=== PATIENT | female | born 1990 | race Caucasian/White ===

== ENCOUNTER 2019-08-26 19:01 | Emergency (ER) | payer OTHER ==
[2019-08-26 20:09] VITALS: BP 109/70
--- NOTE | 2019-08-26 20:17 | UC ---
Complaint Female HPI - HPI Summary HPI Summary: 29 yo female presents with urinary frequency and bladder pressure. She tells me that over the last week she has noticed increased thirst, urination, and bladder pressure. She does feel nauseous intermittently. She thought she was getting a UTI and took AZO, but had no change in her symptoms. She denies fever , chills, SOB, chest pain, abdominal pain, vomiting, diarrhea, flank pain, vaginal bleeding or discharge. Denies PMHx, but does have a fam hx of diabetes. - History Of Current Complaint Chief Complaint: UCBackPain Stated Complaint: KIDNEY/BACK PAIN Time Seen by Provider: 08/26/19 20:17 Hx Obtained From: Patient Hx Last Menstrual Period: 04/27/15 Onset/Duration: Sudden Onset Severity Initially: Moderate Severity Currently: Moderate Pain Intensity: 8 Pain Scale Used: 0-10 Numeric - Allergies/Home Medications Allergies/Adverse Reactions: Allergies Allergy/AdvReac Type Severity Reaction Status Date / Time No Known Allergies Allergy Verified 08/26/19 20:09 PMH/Surg Hx/FS Hx/Imm Hx - Additional Past Medical History Additional PMH: None - Surgical History Surgical History: None - Family History Known Family History: Positive: Non-Contributory - Social History Occupation: Employed Full-time Lives: With Family Alcohol Use: Weekly Substance Use Type: Marijuana Substance Use Comment - Amount & Last Used: RARELY Smoking Status (MU): Former Smoker Type: Cigarettes Amount Used/How Often: 6 CIGS DAILY Review of Systems All Other Systems Reviewed And Are Negative: No Constitutional: Positive: Negative Skin: Positive: Negative Respiratory: Positive: Negative Cardiovascular: Positive: Negative Gastrointestinal: Positive: Negative Genitourinary: Positive: Frequency Neurological: Positive: Negative Psychological: Positive: Negative Physical Exam - Summary Physical Exam Summary: GENERAL: NAD. WDWN. No pain distress. SKIN: No rashes, sores, lesions, or open wounds. NECK: Supple. Nontender. No lymphadenopathy. CHEST: CTAB. No r/r/w. No accessory muscle use. Breathing comfortably and in no distress. CV: RRR. Pulses intact. Cap refill <2seconds ABDOMEN: Soft. NTTP. No distention or guarding. No CVA tenderness. Bowel sounds present NEURO: Alert. PSYCH: Age appropriate behavior. Triage Information Reviewed: Yes Vital Signs: Initial Vital Signs Temp 98.3 F 08/26/19 20:04 Pulse 83 08/26/19 20:04 Resp 16 08/26/19 20:04 BP 109/70 08/26/19 20:04 Pulse Ox 99 08/26/19 20:04 Laboratory Tests 08/26/19 08/26/19 08/26/19 20:17 20:34 20:36 POC Glucose (mg/dL) 94 POC Urine Color Yellow POC Urine Clarity Clear POC Urine pH 5.5 POC Ur Specif [place] 1.015 POC Urine Protein Negative POC Ur Glucose (UA) Negative POC Urine Ketones Negative POC Urine Blood Negative POC Urine Nitrite Negative POC Urine Bilirubin Negative POC Urine Urobilinogen 0.2 POC U Leukocyte Esteras Negative POC Ur Test Negative Vital Signs Reviewed: Yes Complaint Female Dx - Course Course Of Treatment: UA and urine negative. POC glucose 94. Pt declined pelvic exam today. Will draw for CBC, CMP, and tsh today and have pt follow up with her primary doctor this week for a recheck of her symptoms. - Differential Dx/Diagnosis Provider Diagnosis: Urinary frequency Discharge ED - Sign-Out/Discharge Documenting (check all that apply): Patient Departure All imaging exams completed and their final reports reviewed: No Studies - Discharge Plan Condition: Stable Disposition: HOME Patient Education Materials: Urinary Urgency and Frequency (DC) Referrals: Ingrid Andrews MD [Primary Care Provider] - 2 Days Additional Instructions: If you develop a fever, shortness of breath, chest pain, new or worsening symptoms - please call your PCP or go to the ED immediately. Your urine testing was normal today. We have drawn labwork to further evaluate your symptoms. I recommend that you schedule an appointment with your primary doctor in 2-3 days for review of the labwork and a recheck of your symptoms - Billing Disposition and Condition Condition: STABLE Disposition: Home - Attestation Statements Provider Attestation: Chart reviewed. Pt not seen by me. I was available for consult. CORNELIUS
[2019-08-27 15:30] LABS: ABS Eosinophils 0.2 10^3/ul (0-0.6); ABS Lymphocytes 2.2 10^3/ul (1.0-4.8); ABS Monocytes 0.5 10^3/ul (0-0.8); ABS Neutrophils 2.5 10^3/ul (1.5-7.7); Eosinophil % 4.1 %; Hematocrit 44 % (35-47); Hemoglobin 15.2 g/dL (12.0-16.0); Lymphocyte % 40.2 %; Mean Corpuscular HGB Conc 35 g/dL (31-36); Mean Corpuscular Hemoglobin 30 pg (27-31); Mean Corpuscular Volume 88 fL (80-97); Nucleated Red Blood Cells % 0.1; Platelet Count 256 10^3/uL (150-450); Red Blood Count 5.02 10^6 /uL (3.70-4.87); Red Cell Distribution Width 14 % (10-15); White Blood Count 5.4 10^3/uL (3.5-10.8)
[2019-08-27 15:53] LABS: TSH (Thyroid Stimulating Horm) 1.28 mcIU/mL (0.34-5.60)
[2019-08-27 16:30] LABS: Albumin 4.7 g/dL (3.2-5.2); Albumin/Globulin Ratio 1.6 (1-3); BUN/Creatinine Ratio 17.5 (8-20); Calcium 9.7 mg/dL (8.6-10.3); EGFR African American 101.9 (>60); EGFR Non-African American 84.2 (>60); Potassium 4.1 mmol/L (3.5-5.0); Total Bilirubin 0.3 mg/dL (0.2-1.0); Total Protein 7.7 g/dL (6.4-8.9)
--- NOTE | 2019-08-28 14:11 | UC ---
- Progress Note Progress Note: urine culture : + staph saprophyticus usually does not need antibiotic treatments unless the pt. is since this pt. has had symptoms for few week will sent abx and treat for UTI will call in Bactrim x 7 days Course/Dx - Diagnoses Provider Diagnoses: Urinary frequency Discharge ED - Sign-Out/Discharge Documenting (check all that apply): Patient Departure All imaging exams completed and their final reports reviewed: No Studies - Discharge Plan Condition: Stable Disposition: HOME Patient Education Materials: Urinary Urgency and Frequency (DC) Referrals: Ingrid Andrews MD [Primary Care Provider] - 2 Days Additional Instructions: If you develop a fever, shortness of breath, chest pain, new or worsening symptoms - please call your PCP or go to the ED immediately. Your urine testing was normal today. We have drawn labwork to further evaluate your symptoms. I recommend that you schedule an appointment with your primary doctor in 2-3 days for review of the labwork and a recheck of your symptoms - Billing Disposition and Condition Condition: STABLE Disposition: Home
== END 2019-08-26 21:05 | disposition home or self-care (01) ==
LOC: UCCORT 19:01
DX: R35.0 Frequency of micturition (principal); R39.89 Other symptoms and signs involving the genitourinary system
CPT/HCPCS: 36415; 80053; 81003; 84443; 84702; 85025; 87077; 87086; 99211; G0463

== ENCOUNTER 2019-12-21 20:35 | Emergency (ER) | payer OTHER ==
[2019-12-21 20:44] VITALS: BP 125/75
[2019-12-21] MEDS ORDERED: Acetaminophen TAB* 325 MG PO ONE (20:59)
--- NOTE | 2019-12-21 21:06 | UC ---
Dental HPI - HPI Summary HPI Summary: 29-year-old female who had a tooth extraction done 2 days ago. She is on an antibiotic and was given a narcotic for pain. She has run out of the narcotics and today she noted that her left facial area had some bruising and swelling however the swelling has decreased this evening. She is worried that the antibiotic is not helping. - History of Current Complaint Chief Complaint: UCDentalProblem Stated Complaint: DENTAL COMPLAINT, FACIAL SWELLING/BRUISING Time Seen by Provider: 12/21/19 20:41 Hx Obtained From: Patient Hx Last Menstrual Period: IUD ?: No Onset/Duration: Gradual Onset, Still Present Severity: Moderate Pain Intensity: 8 Aggravating Factor(s): Chewing Alleviating Factor(s): OTC Meds Related History: Other - Patient had a tooth extraction done 2 days ago. - Allergies/Home Medications Allergies/Adverse Reactions: Allergies Allergy/AdvReac Type Severity Reaction Status Date / Time No Known Allergies Allergy Verified 12/21/19 20:44 PMH/Surg Hx/FS Hx/Imm Hx Previously Healthy: Yes - Surgical History Surgical History: None - Family History Known Family History: Positive: Non-Contributory - Social History Alcohol Use: Rare Substance Use Type: None Substance Use Comment - Amount & Last Used: RARELY Smoking Status (MU): Former Smoker Type: Cigarettes Amount Used/How Often: 6 CIGS DAILY Review of Systems All Other Systems Reviewed And Are Negative: Yes ENT: Positive: Dental Pain - Left upper jaw pain where the tooth was extracted. Is Patient Immunocompromised?: No Physical Exam Triage Information Reviewed: Yes Appearance: Well-Appearing, No Pain Distress, Well-Nourished Vital Signs: Initial Vital Signs Temp 98.8 F 12/21/19 20:41 Pulse 82 12/21/19 20:41 Resp 20 12/21/19 20:41 BP 125/75 12/21/19 20:41 Pulse Ox 100 12/21/19 20:41 Vital Signs Reviewed: Yes Eyes: Positive: Conjunctiva Clear ENT: Positive: Hearing grossly normal, Pharynx normal, TMs normal Dental: Positive: Other: - The area of the tooth extraction appears normal, gumline is normal color and not swollen. No evidence of abscess formation, no pus drainage. Neck: Positive: Supple, Nontender, No Lymphadenopathy Respiratory: Positive: Lungs clear, Normal breath sounds, No respiratory distress, No accessory muscle use Cardiovascular: Positive: RRR, No Murmur, Pulses Normal, Brisk Capillary Refill Musculoskeletal Exam: Normal Neurological Exam: Normal Psychological Exam: Normal Skin: Positive: Other - Mild bruising to her left facial cheek with minimal swelling. Dental Complaint Course/Dx - Course Course Of Treatment: The patient is comfortable here. She refused an injection of Toradol. She was given Tylenol 650 mg by mouth here and she can continue to alternate that with ibuprofen every 8 hours. - Differential Dx/Diagnosis Provider Diagnosis: Hx of tooth extraction, Jaw pain, non-TMJ Discharge ED - Sign-Out/Discharge Documenting (check all that apply): Patient Departure All imaging exams completed and their final reports reviewed: No Studies - Discharge Plan Condition: Fair Disposition: HOME Patient Education Materials: Toothache (ED) Referrals: Ingrid Andrews MD [Primary Care Provider] - Additional Instructions: May continue Tylenol every 4 hours and alternate with ibuprofen every 8 hours. Continue your present antibiotic. Follow-up with your dentist in 2 or 3 days if continued pain or any worsening symptoms. - Billing Disposition and Condition Condition: FAIR Disposition: Home
== END 2019-12-21 21:08 | disposition home or self-care (01) ==
LOC: UCCORT 20:35
DX: R68.84 Jaw pain (principal); Z98.890 Other specified postprocedural states; Z87.891 Personal history of nicotine dependence
CPT/HCPCS: 99211; A9270-GY; G0463